=== PATIENT | male | born 1965 | race Caucasian/White ===

== ENCOUNTER 2018-10-31 09:19 | Inpatient (IN) | payer OTHER ==
[~2018-10-31] VITALS: Ht 177.8 cm; Wt 84.6 kg
[2018-10-31] MEDS ORDERED: ONDANSETRON 4 MG INJ IV STA (09:31)
[2018-10-31] MEDS ORDERED: morphine 4 MG/ML VIAL IV STA ×2 (09:31→19:53)
[2018-10-31] MEDS ORDERED: NITROGLYCERIN 2% 1 GM OINT PKT TD STA (09:31)
--- NOTE | 2018-10-31 09:36 | ERD ---
ER Documentation Chief Complaint Chief Complaint chest pain with mild sob nausea and vomiting., no diaphoresis, HPI This is a 53-year-old male with a history of prior cardiac stent who is here for chest pain. The patient is complaining of an hour prior to arrival with substernal chest pressure without radiation with nausea vomiting x1 nonbloody, dizzy and short of breath. No diaphoresis. The patient took his home nitroglycerin which is about 2 years old but did not help. His chest pressure is like his prior myocardial infarction a few years ago. Patient is also complaining in that he has back pain just below his shoulder blades ROS All systems reviewed and are negative except as per history of present illness. Medications Home Meds Reported Medications Simvastatin (Simvastatin) Unknown Strength Tablet, PO DAILY, #30 TAB PT DOSENT KNOW DOSAGE 10/31/18 Clonidine Hcl* (Clonidine Hcl*) Unknown Strength Tab, PO DAILY PRN for ELEVATED BLOOD PRESSURE, TAB PT DOSENT KNOW DOSAGE 10/31/18 Lamotrigine* (Lamictal*) 200 Mg Tablet, 200 MG PO DAILY, TAB 10/31/18 Lurasidone Hcl (LATUDA) 60 Mg Tablet, 60 MG PO BID, #30 TAB 10/31/18 Trazodone Hcl* (Trazodone Hcl*) 150 Mg Tablet, 150 MG PO QHS, #30 TAB 10/31/18 Alprazolam* (Xanax*) 2 Mg Tablet, 2 MG PO BID PRN for ANXIETY, TAB 10/31/18 Allergies Allergies: Coded Allergies: No Known Allergy (Unverified , 10/31/18) FmHx Family History: No coronary disease Physical Exam Vitals Vital Signs Date Temp Pulse Resp B/P (MAP) Pulse Ox O2 O2 Flow FiO2 Time Delivery Rate 10/31/18 82 18 152/106 100 Nasal 2.0 10:44 (121) Cannula 10/31/18 95 18 149/116 100 Nasal 2.0 10:23 (127) Cannula 10/31/18 Nasal 2 10:02 Cannula 10/31/18 98.4 88 18 174/115 98 09:26 (134) Physical Exam Const: Well-developed, well-nourished Head: Atraumatic, normocephalic Eyes: Normal Conjunctiva, PERRLA, EOMI, normal sclera, no nystagmus ENT: Normal External Ears, Nose and Mouth, moist mucus membranes. Neck: Full range of motion. No meningismus, no lymphadenopathy. Resp: Clear to auscultation bilaterally, no wheezing, rhonchi, rales Cardio: Regular rate and rhythm, no murmurs, S1 S2 present Abd: Soft, non tender x 4, non distended. Normal bowel sounds, no guarding or rebound, no pulsitile abdominal masses or bruits Skin: No petechiae or rashes, no ecchymosis , no maculopapular rash Back: No midline or flank tenderness Ext: No cyanosis, or edema, FROM x 4, normal inspection, neurovascularly intact x 4 Neur: Awake and alert, STR 5/5 x 4, sensation intact x 4, no focal findings, cerebellum intact Psych: Normal Mood and Affect Result Diagram: 10/31/1893410/31/1835 Results 24 hrs Laboratory Tests Test 10/31/18 09:35 White Blood Count 11.4 10^3/ul Red Blood Count 5.29 10^6/ul Hemoglobin 16.4 g/dl Hematocrit 47.6 % Mean Corpuscular Volume 90.0 fl Mean Corpuscular Hemoglobin 31.0 pg Mean Corpuscular Hemoglobin Concent 34.5 g/dl Red Cell Distribution Width 12.8 % Platelet Count 319 10^3/UL Mean Platelet Volume 8.8 fl Immature Granulocytes % 0.400 % Neutrophils % 80.7 % Lymphocytes % 13.5 % Monocytes % 5.1 % Eosinophils % 0.1 % Basophils % 0.2 % Nucleated Red Blood Cells % 0.0 /100WBC Immature Granulocytes # 0.050 10^3/ul Neutrophils # 9.2 10^3/ul Lymphocytes # 1.5 10^3/ul Monocytes # 0.6 10^3/ul Eosinophils # 0.0 10^3/ul Basophils # 0.0 10^3/ul Nucleated Red Blood Cells # 0.0 10^3/ul Prothrombin Time 12.7 Sec Prothrombin Time Ratio 1.0 INR International Normalized Ratio 0.94 Activated Partial Thromboplast Time 25.8 Sec Sodium Level 140 mmol/L Potassium Level 3.9 mmol/L Chloride Level 105 mmol/L Carbon Dioxide Level 21 mmol/L Anion Gap 14 Blood Urea Nitrogen 12 mg/dl Creatinine 1.07 mg/dl Est Glomerular Filtrat Rate mL/min > 60 mL/min Glucose Level 130 mg/dl Calcium Level 10.0 mg/dl Troponin I < 0.012 ng/ml Current Medications Medications Dose Sig/Meera Start Time Status Last (Trade) Ordered Route PRN Stop Time Admin Dose Reason Admin 1 inch ONCE STAT 10/31/18 DC 10/31/18 Nitroglycerin TD 09: 09:47 10/31/18 09:33 (Nitroglyceri n 2% Oint) Morphine 4 mg ONCE STAT 10/31/18 DC 10/31/18 Sulfate IV : 09:47 (morphine) 10/31/18 09:34 Ondansetron 4 mg ONCE STAT 10/31/18 DC 10/31/18 HCl (Zofran IV 09: 09:46 Inj) 10/31/18 09:34 Nicardipine 30 mg ONCE ONCE 10/31/18 DC 10/31/18 HCl PO 10:00 09:47 (Cardene) 10/31/18 10:01 Iohexol 100 ml @ ud STK-MED 10/31/18 DC ONCE .ROUTE 10:10/31/18 10:26 Sodium 100 ml @ ud STK-MED 10/31/18 DC Chloride ONCE .ROUTE 10:10/31/18 10:26 IV Flush 10 ml STK-MED 10/31/18 DC (NS 10 ml) ONCE .ROUTE 10:25 10/31/18 10:26 Procedures/MDM EKG: Rate/Rhythm: Normal Sinus Rhythm,NL intervals QRS, ST, QT: NORMAL NH, QRS, QT] Impression: NORMAL EKG MR #: [id number] DOS: 10/31/18930 Ordering MD: MARIELA INFANTE DO Location: E/R Room/Bed: PROCEDURE: CTA Chest CLINICAL INDICATION: Chest pain TECHNIQUE: CTA of the chest with 100 cc Omnipaque 350 IV contrast. Coronal, sagittal and 3-D volume rendered reformatted images were obtained. One or more of the following dose reduction techniques were used: automated exposure control, adjustment of the mA and/or kV according to patient size, use of iterative reconstruction technique. DICOM images are available. CTDI 18.7 mGy, DLP 752 mGy-cm. COMPARISON: No prior studies are available for comparison. FINDINGS: Lungs: Mild right lung base scarring/atelectasis. No acute infiltrate, pleural effusion or pneumothorax. No pulmonary nodule or mass. Cardiovascular: No pulmonary emboli. Normal heart size. Implanted loop recorder is present within anterior left chest wall subcutaneous fat. Coronary arterial and aortic atherosclerotic calcifications. No thoracic aortic aneurysm or dissection. Lymph nodes: No lymphadenopathy. Mediastinum: No mediastinal mass. Upper abdomen: Unremarkable. Musculoskeletal: Degenerative enthesopathy of the spine. IMPRESSION: 1. No thoracic aortic aneurysm or dissection. No pulmonary embolism. 2. Coronary arterial and aortic atherosclerotic calcifications. 3. No evidence of mass, lymphadenopathy, or acute infiltrate. RPTAT: QQ .Ori Leslie MD, MD Date Time Electronically viewed and signed by .Ori Leslie MD, on 10/31/2018 10:53 .R/ CC: MARIELA INFANTE DO [id number] The patient will be admitted for chest pain workup. No evidence of aortic dissection. Is still complaining that he feels dizzy blood pressure still a bit elevated with a diastolic of 109. Will repeat Cardene and he feels like the room is spinning a bit I will give him some Antivert. No headache. Cardiac Admit MDM: Patient's symptoms are concerning for cardiac cause will require inpatient workup and continuous monitoring. Further w/u for ischemia, arrhythmia, PE or dissection will be deferred to the inpatient team. Departure Diagnosis: Primary Impression: Chest pain Chest pain type: unspecified Qualified Codes: R07.9 - Chest pain, unspecified Condition: Stable MARIELA INFANTE DO Oct 31, 2018 09:36
[2018-10-31] MEDS ORDERED: NICARDipine HCL 30 MG CAPSULE PO ONE ×2 (10:00→11:00)
[2018-10-31] MEDS ORDERED: ALPR2TAB PO (10:21)
[2018-10-31] MEDS ORDERED: LURA60TA PO (10:22)
[2018-10-31] MEDS ORDERED: LAMO200T3 PO (10:22)
[2018-10-31] MEDS ORDERED: TRAZ150T65 PO (10:22)
[2018-10-31] MEDS ORDERED: CLON-379 PO (10:24)
[2018-10-31] MEDS ORDERED: ZOC10 PO (10:25)
[2018-10-31] MEDS ORDERED: SOD CHLORIDE 0.9% 100 ML ONE ×2 (10:25→15:31)
[2018-10-31] MEDS ORDERED: IOHEXOL 100 ML ONE (10:25)
[2018-10-31] MEDS ORDERED: MECLIZINE 12.5 MG TAB PO ONE (11:00)
[2018-10-31] MEDS ORDERED: ONDANSETRON 4 MG INJ IV PRN ×2 (11:30→15:00)
[2018-10-31] MEDS ORDERED: ACETAMINOPHEN 325 MG TAB PO PRN ×2 (11:30→15:00)
[2018-10-31] MEDS ORDERED: LORAZEPAM 2 MG INJ IV ONE (12:30)
[2018-10-31] MEDS ORDERED: SOD CHLORIDE 0.9% 500 ML IV ONE (13:30)
[2018-10-31] MEDS ORDERED: hydrALAzine 20 MG INJ IV ONE (13:30)
[2018-10-31] MEDS: SOD CHLORIDE 0.9% 1,000 ML IV SCH (14:49)
[2018-10-31] MEDS ORDERED: NACL 0.9% 3 ML SYG IV SCH (15:00)
--- NOTE | 2018-10-31 15:30 | HP ---
Date/Time of Note Date/Time of Note DATE: 10/31/18 TIME: 15:06 Assessment/Plan VTE Prophylaxis SCD applied (from Nsg): Yes Pharmacological prophylaxis: NA/contraindicated Pharm contraindication: low risk/ambulating Lines/Catheters IV Catheter Type (from Nrsg): Saline Lock Assessment/Plan Assessment/Plan 53 yo man history of CAD (SD with PCI in 2016), hypertension, and anxiety presents with multiple complaints including vomiting with PO intolerance, chest pain and vertigo #Chest pain - Reports symptoms are similar to SD in 2016. - No relief after aspirin and NG - Low suspicion for ACS though with reassuring EKG, negative initial troponin. - Will continue to trend trops. #CAD - Continue home aspirin, statin. #Vertigo No other focal neuro findings, no tinnitus Differential: - Severe dehydration from GI losses: will aggressively replace fluids - Cerebellar stroke: Will get MRI - Viral labyrinthitis or vestibulitis: If MRI negative and symptoms persist, will consider prednisone taper. #Vomiting+diarrhea - Likely due to acute viral or toxic gastroenteritis - Admit for PO intolerance. - IV fluids, zofran prn. - Will try clear liquid diet. #Abdominal mass - I thought I felt a pulsatile abdominal mass. I'll order CT abdomen/pelvis for possible AAA. Also can r/o SBO this way. #Seizure disorder - Continue lamotrigine #HTN - Continue home clonidine DVT: SCDs GI: PPI Result Diagram: 10/31/18 0935 10/31/18 0935 HPI/ROS Admit Date/Time Admit Date/Time October 31, 2018 Hx of Present Illness Mr. Ochoa is a 53 yo man with history of CAD (SD with PCI in 2016), hypertension, and anxiety who presents with vertigo, vomiting, diarrhea, and chest pain. He was in his usual state of health until Thursday night, three days prior to admission. That night he developed nausea and nonbloody vomiting which has persisted since admission; for the past few days he's had almost complete PO intolerance and has vomited up food, liquids, and medications. About two days ago developed runny diarrhea. Yesterday he developed vertigo, describes the room spinning around him. Present with standing and also at rest. Also had chills during this time. Of note he's also had rhinorrhea and cough productive of yellow sputum for about 1.5 weeks. He also reports weeks of lower urinary obstructive symptoms, including weak urinary stream and dribbling after stopping. Also reports some burning dysuria during this time. He had a heart attack in 2016, got PCI and stent placement. Reports being in an induced coma for 3 days. Also in 2016 had an implanted loop recorder placed at [facility] which is still in place. 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 This morning at 6:30 he rolled over in his sleep and woke up with severe vertigo. He took his blood pressure medications and immediately vomited them up. About 30 minutes after waking up he developed pressure-like chest pain "like my heart is in a box getting squeezed", radiating to his back. Called paramedics and arrived in the ED. The chest pain is still present when I evaluated him in the ED. In the ED he was afebrile, hypertensive to 164/115. EKG reviewed; no ST-T changes concerning for ischemia. Got PO and IV nicardipene. Still slightly hypertensive, got hydralazine IV and soon after heart rate increased to 140s- 150s, sinus tachy. Labs unremarkable, troponin negative x1. CT chest angiogram negative for PE or aortic aneurysm. ROS Denies fever, weight loss, night sweats, headache, vision changes, hearing loss, tinnitus, sore throat, dysphagia, dyspnea, heart palpitations, constipation, muscle aches. PMH/Family/Social Past Medical History Anxiety disorder Hypertension SD with PCI in 2016 Medications Current Medications Ondansetron HCl (Zofran Inj) 4 mg ER BRIDGE PRN IV NAUSEA/VOMITING; Start 10/31/18 at 11:30; Stop 11/01/18 at 11:29 Acetaminophen (Tylenol Tab) 650 mg ER BRIDGE PRN PO .MILD PAIN 1-3 OR TEMP; Start 10/31/18 at 11:30; Stop 11/01/18 at 11:29 Sodium Chloride 1,000 ml @ 100 mls/hr Q10H IV ; Start 10/31/18 at 14:49 IV Flush (NS 3 ml) 3 ml PER PROTOCOL IV ; Start 10/31/18 at 15:00 Ondansetron HCl (Zofran Inj) 4 mg Q6H PRN IV NAUSEA/VOMITING; Start 10/31/18 at 15:00 Acetaminophen (Tylenol Tab) 650 mg Q6H PRN PO .PAIN 1-3 OR TEMP; Start 10/31/18 at 15:00 Pantoprazole (Protonix Iv) 40 mg DAILY@06 IV ; Start 11/01/18 at 06:00; Status UNV Lamotrigine (Lamictal) 200 mg DAILY PO ; Start 11/01/18 at 09:00; Status UNV Trazodone HCl (Desyrel) 150 mg QHS PO ; Start 10/31/18 at 21:00; Status UNV Miscellaneous Information 60 mg BID PO ; Start 10/31/18 at 21:00; Status UNV Clonidine (Catapres) 0.1 mg BID PO ; Start 10/31/18 at 21:00; Status UNV Atorvastatin Calcium (Lipitor) 40 mg HS PO ; Start 10/31/18 at 21:00; Status UNV Aspirin (Aspirin) 81 mg DAILY PO ; Start 11/01/18 at 09:00; Status UNV Coded Allergies: No Known Allergy (Unverified , 10/31/18) Past Surgical History Cholecystectomy Cardiac loop recorder. Social History Alcohol Use: none Smoking Status: Former smoker (quit 3 months ago; smoked for 6 years. ) Drug Use: none Exam/Review of Systems Vital Signs Vitals Vital Signs Date Temp Pulse Resp B/P (MAP) Pulse Ox O2 O2 Flow FiO2 Time Delivery Rate 10/31/18 123 16 137/99 99 Nasal 2.0 13:36 (112) Cannula 10/31/18 98.4 09:26 Exam Exam Gen: Well developed man, anxious and uncomfortable appearing. Eyes: PERRL, no icterus. Nystagmus with lateral gaze. HEENT: Moist mucous membranes, clear oropharynx, no pharyngeal erythema. Neck: Supple, no lymphadenopathy, no JVD Card: Tachycardic, loud S1+S2. No murmurs appreciated. Pulm: Clear to auscultation bilaterally. Abd: Prominent pulse heard throughout. Feels pulsatile on deep palpation. No palpable masses. Nontender throughout. Soft, nondistended. Ext: No cyanosis/clubbing/edema, good peripheral pulses. Skin: warm, dry, well perfused. LIZZY SERNA MD Oct 31, 2018 15:18
[2018-10-31] MEDS ORDERED: IOHEXOL 300MG/ML 150 ML BTL ONE (15:31)
[2018-10-31] MEDS: LORAZEPAM 2 MG INJ IV PRN ×2 (16:44→22:58)
[2018-10-31] MEDS: IBUPROFEN 800 MG TAB PO PRN (17:36)
[2018-10-31] MEDS ORDERED: NON-FORMULARY/PATIENT OWN MED (Lurasidone Hcl (Latuda) 60 MG) PO SCH (21:00)
[2018-10-31] MEDS: FAMOTIDINE 20 MG INJ IV SCH (22:57)
[2018-10-31] MEDS: ATORVASTATIN 40 MG TAB PO SCH (22:57)
[2018-10-31] MEDS: traZODone 50 MG TAB PO SCH (22:57)
[2018-11-01] VITALS (13 sets, daily range): BP systolic 107–139; BP diastolic 74–93; PULSE 90–131; RESP 20; Ht 177.8 cm; Wt 84.6 kg
[2018-11-01] MEDS: SOD CHLORIDE 0.9% 1,000 ML IV SCH ×3 (01:09→23:40)
[2018-11-01] MEDS: morphine 2 MG INJ IV PRN ×3 (02:28→20:41)
[2018-11-01] MEDS: LORAZEPAM 2 MG INJ IV PRN ×3 (05:06→18:04)
[2018-11-01] MEDS: ASPIRIN 81 MG TAB PO SCH (08:31)
[2018-11-01] MEDS: LAMOTRIGINE 100 MG TAB PO SCH (08:32)
[2018-11-01] MEDS: FAMOTIDINE 20 MG INJ IV SCH ×2 (08:32→20:39)
[2018-11-01] MEDS: LURASIDONE IS XX SCH ×2 (13:22→21:30)
[2018-11-01] MEDS: traZODone 50 MG TAB PO SCH (20:40)
[2018-11-01] MEDS: ATORVASTATIN 40 MG TAB PO SCH (20:40)
[2018-11-02] VITALS (13 sets, daily range): BP systolic 111–152; BP diastolic 52–96; PULSE 74–143; RESP 19–20
[2018-11-02] MEDS: LURASIDONE IS XX SCH ×2 (04:30→14:28)
[2018-11-02] MEDS: LORAZEPAM 2 MG INJ IV PRN ×2 (06:36→18:29)
[2018-11-02] MEDS: FAMOTIDINE 20 MG INJ IV SCH (07:44)
[2018-11-02] MEDS: ASPIRIN 81 MG TAB PO SCH (07:44)
[2018-11-02] MEDS: LAMOTRIGINE 100 MG TAB PO SCH (07:44)
--- NOTE | 2018-11-02 16:29 | PN ---
Date/Time of Note Date/Time of Note DATE: 11/02/18 TIME: 16:26 Assessment/Plan VTE Prophylaxis Risk score (from Nsg)>0 risk: 1 SCD applied (from Nsg): Yes SCD contraindicated: low risk/ambulating Pharmacological prophylaxis: LMWH Lines/Catheters IV Catheter Type (from Nrsg): Peripheral IV Urinary Cath still in place: No Assessment/Plan Hospital Course Late entry for 11/01 Assessment and plan 1. Atypical chest pain ruled out ACS by enzymes EKG symptoms. Stable observe 2. Chronic coronary diseasePCI 2016 old ID 3. Chronic hypertension 4. Chronic generalized anxiet y 5. Past tobacco quit a few months ago 6. COPD? 1. Seizure disorder Reactive: No nausea vomiting diaphoresis. No further chest pain requiring nitro etc. Objective: Vital signs stable sinus rhythm Physical exam No pallor JVD Regular Clear no tachypnea no rash 9 benign No edema Result Diagram: 11/02/18 0456 11/02/18 0456 Results 24hrs Laboratory Tests Test 11/02/18 04:56 White Blood Count 7.7 Red Blood Count 4.43 L Hemoglobin 13.9 L Hematocrit 41.4 L Mean Corpuscular Volume 93.5 Mean Corpuscular Hemoglobin 31.4 Mean Corpuscular Hemoglobin Concent 33.6 Red Cell Distribution Width 13.0 Platelet Count 257 Mean Platelet Volume 9.0 Immature Granulocytes % 0.300 Neutrophils % 64.1 Lymphocytes % 22.2 Monocytes % 8.6 Eosinophils % 3.9 Basophils % 0.9 Nucleated Red Blood Cells % 0.0 Immature Granulocytes # 0.020 Neutrophils # 4.9 Lymphocytes # 1.7 Monocytes # 0.7 Eosinophils # 0.3 Basophils # 0.1 Nucleated Red Blood Cells # 0.0 Prothrombin Time 13.7 Prothrombin Time Ratio 1.1 INR International Normalized Ratio 1.04 Sodium Level 140 Potassium Level 4.3 Chloride Level 111 H Carbon Dioxide Level 21 Anion Gap 8 Blood Urea Nitrogen 12 Creatinine 1.22 Est Glomerular Filtrat Rate mL/min > 60 Glucose Level 89 Lactic Acid Level 1.1 Calcium Level 9.2 Phosphorus Level 3.3 Magnesium Level 1.9 Total Bilirubin 0.6 Direct Bilirubin 0.00 Indirect Bilirubin 0.6 Aspartate Amino Transf (AST/SGOT) 18 Alanine Aminotransferase (ALT/SGPT) 24 Alkaline Phosphatase 42 Total Protein 6.4 Albumin 3.7 Globulin 2.70 Albumin/Globulin Ratio 1.37 Lipase 53 Exam/Review of Systems Exam Vitals Vital Signs Date Temp Pulse Resp B/P (MAP) Pulse Ox O2 O2 Flow FiO2 Time Delivery Rate 11/02/18 98.3 99 20 144/94 97 15:17 (111) 11/01/18 Room Air 01:30 10/31/18 2.0 17:16 Intake and Output 11/01/18 11/01/18 11/02/18 1414:59 22:59 06:59 IntakeIntake Total 850 ml 710 ml OutputOutput Total 802 ml BalanceBalance 850 ml -92 ml Results Results 24hrs Laboratory Tests Test 11/02/18 04:56 White Blood Count 7.7 Red Blood Count 4.43 L Hemoglobin 13.9 L Hematocrit 41.4 L Mean Corpuscular Volume 93.5 Mean Corpuscular Hemoglobin 31.4 Mean Corpuscular Hemoglobin Concent 33.6 Red Cell Distribution Width 13.0 Platelet Count 257 Mean Platelet Volume 9.0 Immature Granulocytes % 0.300 Neutrophils % 64.1 Lymphocytes % 22.2 Monocytes % 8.6 Eosinophils % 3.9 Basophils % 0.9 Nucleated Red Blood Cells % 0.0 Immature Granulocytes # 0.020 Neutrophils # 4.9 Lymphocytes # 1.7 Monocytes # 0.7 Eosinophils # 0.3 Basophils # 0.1 Nucleated Red Blood Cells # 0.0 Prothrombin Time 13.7 Prothrombin Time Ratio 1.1 INR International Normalized Ratio 1.04 Sodium Level 140 Potassium Level 4.3 Chloride Level 111 H Carbon Dioxide Level 21 Anion Gap 8 Blood Urea Nitrogen 12 Creatinine 1.22 Est Glomerular Filtrat Rate mL/min > 60 Glucose Level 89 Lactic Acid Level 1.1 Calcium Level 9.2 Phosphorus Level 3.3 Magnesium Level 1.9 Total Bilirubin 0.6 Direct Bilirubin 0.00 Indirect Bilirubin 0.6 Aspartate Amino Transf (AST/SGOT) 18 Alanine Aminotransferase (ALT/SGPT) 24 Alkaline Phosphatase 42 Total Protein 6.4 Albumin 3.7 Globulin 2.70 Albumin/Globulin Ratio 1.37 Lipase 53 Medications Medication Current Medications Sodium Chloride 1,000 ml @ 50 mls/hr Q20H IV Last administered on 11/01/18at 23:40; Admin Dose 50 MLS/HR; Start 10/31/18 at 14:49 IV Flush (NS 3 ml) 3 ml PER PROTOCOL IV ; Start 10/31/18 at 15:00 Ondansetron HCl (Zofran Inj) 4 mg Q6H PRN IV NAUSEA/VOMITING Last administered on 11/01/18 02:26; Admin Dose 4 MG; Start 10/31/18 at 15:00 Acetaminophen (Tylenol Tab) 650 mg Q6H PRN PO .PAIN 1-3 OR TEMP Last administered on 10/31/18 15:52; Admin Dose 650 MG; Start 10/31/18 at 15:00 Famotidine (Pepcid Iv) 20 mg BID IV Last administered on 11/02/18 07:44; Admin Dose 20 MG; Start 10/31/18 at 21:00 Lamotrigine (Lamictal) 200 mg DAILY PO Last administered on 11/02/18 07:44; Admin Dose 200 MG; Start 11/01/18 at 09:00 Trazodone HCl (Desyrel) 150 mg QHS PO Last administered on 11/01/18 20:40; Admin Dose 150 MG; Start 10/31/18 at 21:00 Miscellaneous Information 60 mg BID PO ; Start 10/31/18 at 21:00; Status UNV Clonidine (Catapres) 0.1 mg BID PO Last administered on 11/02/18 07:44; Admin Dose 0.1 MG; Start 10/31/18 at 21:00 Atorvastatin Calcium (Lipitor) 40 mg HS PO Last administered on 11/01/18 20:40; Admin Dose 40 MG; Start 10/31/18 at 21:00 Aspirin (Aspirin) 81 mg DAILY PO Last administered on 11/02/18 07:44; Admin Dose 81 MG; Start 11/01/18 at 09:00 Lorazepam (Ativan) 1 mg Q6H PRN IV agitation Last administered on 11/02/18 06:36; Admin Dose 1 MG; Start 10/31/18 at 16:30 Ibuprofen (Motrin) 800 mg Q6H PRN PO MILD PAIN LEVEL 1-3 Last administered on 10/31/18 17:36; Admin Dose 800 MG; Start 10/31/18 at 17:30 Morphine Sulfate (morphine) 2 mg Q4 PRN IV PAIN LEVEL 6-10 Last administered on 11/01/18 20:41; Admin Dose 2 MG; Start 4/21/19 at 20:00 Miscellaneous Information (*Order Clarification Bulletin) MEDICATION REQUIRES CLARIFICATION: Q8H XX Last administered on 11/02/18at 14:28; Admin Dose 1 EA; Start 11/01/18 at 13:30 PARTHA ADLER MD Nov 02, 2018 16:29
--- NOTE | 2018-11-02 17:17 | PN ---
Date/Time of Note Date/Time of Note DATE: 11/02/18 TIME: 17:16 Assessment/Plan VTE Prophylaxis Risk score (from Nsg)>0 risk: 1 SCD applied (from Nsg): Yes SCD contraindicated: low risk/ambulating Pharmacological prophylaxis: LMWH Lines/Catheters IV Catheter Type (from Nrsg): Peripheral IV Urinary Cath still in place: No Assessment/Plan Hospital Course Assessment and plan 1. Atypical chest pain ruled out ACS via enzymes/ EKG. Stable observe 2. Chronic coronary diseasePCI 2015; old [place] continue medical management 3. Chronic hypertension 4. Chronic generalized anxiety 5. Past tobacco quit a few months ago 6. COPD? 7. Seizure disorder S: 11/01 no nausea vomiting diaphoresis. No further chest pain requiring nitro etc. 11/02 tolerating diet no further chest pain. Feels more discomfort with heavy meals O: Vital signs stable sinus rhythm PE No pallor JVD Regular Clear no tachypnea benign No edema Result Diagram: 11/02/18 0456 11/02/18 0456 Results 24hrs Laboratory Tests Test 11/02/18 04:56 White Blood Count 7.7 Red Blood Count 4.43 L Hemoglobin 13.9 L Hematocrit 41.4 L Mean Corpuscular Volume 93.5 Mean Corpuscular Hemoglobin 31.4 Mean Corpuscular Hemoglobin Concent 33.6 Red Cell Distribution Width 13.0 Platelet Count 257 Mean Platelet Volume 9.0 Immature Granulocytes % 0.300 Neutrophils % 64.1 Lymphocytes % 22.2 Monocytes % 8.6 Eosinophils % 3.9 Basophils % 0.9 Nucleated Red Blood Cells % 0.0 Immature Granulocytes # 0.020 Neutrophils # 4.9 Lymphocytes # 1.7 Monocytes # 0.7 Eosinophils # 0.3 Basophils # 0.1 Nucleated Red Blood Cells # 0.0 Prothrombin Time 13.7 Prothrombin Time Ratio 1.1 INR International Normalized Ratio 1.04 Sodium Level 140 Potassium Level 4.3 Chloride Level 111 H Carbon Dioxide Level 21 Anion Gap 8 Blood Urea Nitrogen 12 Creatinine 1.22 Est Glomerular Filtrat Rate mL/min > 60 Glucose Level 89 Lactic Acid Level 1.1 Calcium Level 9.2 Phosphorus Level 3.3 Magnesium Level 1.9 Total Bilirubin 0.6 Direct Bilirubin 0.00 Indirect Bilirubin 0.6 Aspartate Amino Transf (AST/SGOT) 18 Alanine Aminotransferase (ALT/SGPT) 24 Alkaline Phosphatase 42 Total Protein 6.4 Albumin 3.7 Globulin 2.70 Albumin/Globulin Ratio 1.37 Lipase 53 Exam/Review of Systems Exam Vitals Vital Signs Date Temp Pulse Resp B/P (MAP) Pulse Ox O2 O2 Flow FiO2 Time Delivery Rate 11/02/18 98.3 99 20 144/94 97 15:17 (111) 11/01/18 Room Air 01:30 10/31/18 2.0 17:16 Intake and Output 11/01/18 11/01/18 11/02/18 1414:59 22:59 06:59 IntakeIntake Total 850 ml 710 ml OutputOutput Total 802 ml BalanceBalance 850 ml -92 ml Results Results 24hrs Laboratory Tests Test 11/02/18 04:56 White Blood Count 7.7 Red Blood Count 4.43 L Hemoglobin 13.9 L Hematocrit 41.4 L Mean Corpuscular Volume 93.5 Mean Corpuscular Hemoglobin 31.4 Mean Corpuscular Hemoglobin Concent 33.6 Red Cell Distribution Width 13.0 Platelet Count 257 Mean Platelet Volume 9.0 Immature Granulocytes % 0.300 Neutrophils % 64.1 Lymphocytes % 22.2 Monocytes % 8.6 Eosinophils % 3.9 Basophils % 0.9 Nucleated Red Blood Cells % 0.0 Immature Granulocytes # 0.020 Neutrophils # 4.9 Lymphocytes # 1.7 Monocytes # 0.7 Eosinophils # 0.3 Basophils # 0.1 Nucleated Red Blood Cells # 0.0 Prothrombin Time 13.7 Prothrombin Time Ratio 1.1 INR International Normalized Ratio 1.04 Sodium Level 140 Potassium Level 4.3 Chloride Level 111 H Carbon Dioxide Level 21 Anion Gap 8 Blood Urea Nitrogen 12 Creatinine 1.22 Est Glomerular Filtrat Rate mL/min > 60 Glucose Level 89 Lactic Acid Level 1.1 Calcium Level 9.2 Phosphorus Level 3.3 Magnesium Level 1.9 Total Bilirubin 0.6 Direct Bilirubin 0.00 Indirect Bilirubin 0.6 Aspartate Amino Transf (AST/SGOT) 18 Alanine Aminotransferase (ALT/SGPT) 24 Alkaline Phosphatase 42 Total Protein 6.4 Albumin 3.7 Globulin 2.70 Albumin/Globulin Ratio 1.37 Lipase 53 Medications Medication Current Medications Sodium Chloride 1,000 ml @ 50 mls/hr Q20H IV Last administered on 11/01/18at 23:40; Admin Dose 50 MLS/HR; Start 10/31/18 at 14:49 IV Flush (NS 3 ml) 3 ml PER PROTOCOL IV ; Start 10/31/18 at 15:00 Ondansetron HCl (Zofran Inj) 4 mg Q6H PRN IV NAUSEA/VOMITING Last administered on 11/01/18 02:26; Admin Dose 4 MG; Start 10/31/18 at 15:00 Acetaminophen (Tylenol Tab) 650 mg Q6H PRN PO .PAIN 1-3 OR TEMP Last administered on 10/31/18 15:52; Admin Dose 650 MG; Start 10/31/18 at 15:00 Famotidine (Pepcid Iv) 20 mg BID IV Last administered on 11/02/18 07:44; Admin Dose 20 MG; Start 10/31/18 at 21:00 Lamotrigine (Lamictal) 200 mg DAILY PO Last administered on 11/02/18 07:44; Admin Dose 200 MG; Start 11/01/18 at 09:00 Trazodone HCl (Desyrel) 150 mg QHS PO Last administered on 11/01/18 20:40; Admin Dose 150 MG; Start 10/31/18 at 21:00 Miscellaneous Information 60 mg BID PO ; Start 10/31/18 at 21:00; Status UNV Clonidine (Catapres) 0.1 mg BID PO Last administered on 11/02/18 07:44; Admin Dose 0.1 MG; Start 10/31/18 at 21:00 Atorvastatin Calcium (Lipitor) 40 mg HS PO Last administered on 11/01/18 20:40; Admin Dose 40 MG; Start 10/31/18 at 21:00 Aspirin (Aspirin) 81 mg DAILY PO Last administered on 11/02/18 07:44; Admin Dose 81 MG; Start 11/01/18 at 09:00 Lorazepam (Ativan) 1 mg Q6H PRN IV agitation Last administered on 11/02/18 06:36; Admin Dose 1 MG; Start 10/31/18 at 16:30 Ibuprofen (Motrin) 800 mg Q6H PRN PO MILD PAIN LEVEL 1-3 Last administered on 10/31/18 17:36; Admin Dose 800 MG; Start 10/31/18 at 17:30 Morphine Sulfate (morphine) 2 mg Q4 PRN IV PAIN LEVEL 6-10 Last administered on 11/01/18 20:41; Admin Dose 2 MG; Start 10/31/18 at 20:00 Miscellaneous Information (*Order Clarification Bulletin) MEDICATION REQUIRES CLARIFICATION: Q8H XX Last administered on 11/02/18at 14:28; Admin Dose 1 EA; Start 11/01/18 at 13:30 PARTHA ALDER MD Nov 02, 2018 17:17
[2018-11-02] MEDS: SOD CHLORIDE 0.9% 1,000 ML IV SCH (18:29)
[2018-11-02] MEDS: morphine 2 MG INJ IV PRN (20:40)
[2018-11-02] MEDS: FAMOTIDINE 20 MG TAB PO SCH (20:41)
[2018-11-02] MEDS: traZODone 50 MG TAB PO SCH (20:41)
[2018-11-02] MEDS: ATORVASTATIN 40 MG TAB PO SCH (20:41)
[2018-11-03] VITALS (10 sets, daily range): BP systolic 117–137; BP diastolic 88–102; PULSE 67–90; RESP 19–20
[2018-11-03] MEDS: FAMOTIDINE 20 MG TAB PO SCH (08:31)
[2018-11-03] MEDS: ASPIRIN 81 MG TAB PO SCH (08:31)
[2018-11-03] MEDS: LAMOTRIGINE 100 MG TAB PO SCH (08:31)
[2018-11-03] MEDS: LORAZEPAM 2 MG INJ IV PRN (08:32)
[2018-11-03] MEDS: IBUPROFEN 800 MG TAB PO PRN (12:11)
[2018-11-03] MEDS: morphine 2 MG INJ IV PRN (12:40)
--- NOTE | 2018-11-03 13:40 | DS ---
Date/Time of Note Date/Time of Note DATE: 11/03/18 TIME: 13:35 Discharge Summary Admission/Discharge Info Admit Date/Time Nov 02, 2018 at 19:20 Discharge Date/Time Patient Condition: Stable Consults Social service Case management Procedures MRI BRAIN IMPRESSION: 1. No evidence of acute intracranial pathology. 2. Very mild microvascular ischemic disease in the periventricular and deep white matter. 3. The brain is otherwise normal in appearance. CT A/P IMPRESSION: 1. Colonic diverticulosis without diverticulitis. 2. Calcific atherosclerosis of the aorta. 3. Mild fat-containing bilateral inguinal hernias. 4. Otherwise unremarkable contrast enhanced CT abdomen and pelvis without acute pathology identified. There is no evidence of abdominal aortic aneurysm or bowel obstruction. angiogram chest IMPRESSION: 1. No thoracic aortic aneurysm or dissection. No pulmonary embolism. 2. Coronary arterial and aortic atherosclerotic calcifications. 3. No evidence of mass, lymphadenopathy, or acute infiltrate. Hx of Present Illness 53-year-old gentleman admitted with chest pain. Hospital Course Hospitalist coverage/hospital course/ assessment and plan 1. Atypical chest pain ruled out ACS via enzymes/ EKG. Stable discharge home. Differential: gallbladder or GI issues. Observe- f/p as outpt. i Asked him to adjust his diet. 2. Chronic coronary diseasePCI 2016; old [place] continue medical management 3. Chronic hypertension 4. Chronic generalized anxiety 5. Past tobacco quit a few months ago 6. COPD? 7. Seizure disorder 8. Failure to thrive. Appreciate social service assistance. 9. Dyslipidemia? Adjust diet may require statin S: 11/01 no nausea vomiting diaphoresis. No further chest pain requiring nitro etc. 11/02 tolerating diet no further chest pain. Feels more discomfort with heavy meals O: Vital signs stable sinus rhythm PE No pallor JVD Regular Clear no tachypnea benign No edema Labs LFTs normal. total cholesterol 200 LDL 150 HDL 28 Triglycerides 130, and this is a nonfasting sample. Recommend repeat as outpatient as indicated. Home Meds Reported Medications Simvastatin (Simvastatin) Unknown Strength Tablet, PO DAILY, #30 TAB PT DOSENT KNOW DOSAGE 10/31/18 Clonidine Hcl* (Clonidine Hcl*) Unknown Strength Tab, PO DAILY PRN for ELEVATED BLOOD PRESSURE, TAB PT DOSENT KNOW DOSAGE 10/31/18 Lamotrigine* (Lamictal*) 200 Mg Tablet, 200 MG PO DAILY, TAB 10/31/18 Lurasidone Hcl (LATUDA) 60 Mg Tablet, 60 MG PO BID, #30 TAB 10/31/18 Trazodone Hcl* (Trazodone Hcl*) 150 Mg Tablet, 150 MG PO QHS, #30 TAB 10/31/18 Alprazolam* (Xanax*) 2 Mg Tablet, 2 MG PO BID PRN for ANXIETY, TAB 10/31/18 Primary Care Provider Not On Staff Doctor Time spent on discharge: > 30 minutes PARTHA ADLER MD Nov 03, 2018 13:40
--- NOTE | 2018-11-03 13:44 | PDOCDIS ---
Discharge Instructions CONDITION [id number] Patient Condition: [id number] Stable HOME CARE INSTRUCTIONS: [id number] Diet Instructions: [id number] Low Fat /Cholesterol [id number] Your diet recommendation is: [id number] foods ACTIVITY: [id number] Activity Restrictions: [id number] Slowly Increase Activity Do not Drive FOLLOW UP/APPOINTMENTS Follow-up Plan Appointment primary 1 week PARTHA ADLER MD Nov 03, 2018 13:44
[2018-11-03] MEDS ORDERED: FAMO20TA18 PO (13:51)
[2018-11-03] MEDS ORDERED: TOPI25CA PO (13:51)
[2018-11-03] MEDS ORDERED: ACET325T33 PO (13:51)
[2018-11-03] MEDS ORDERED: LAMO200T3 PO (13:51)
[2018-11-03] MEDS ORDERED: ASPI-817 PO (13:51)
[2018-11-03] MEDS ORDERED: CLON0.1T14 PO (13:51)
[2018-11-03] MEDS ORDERED: SIMV40TA2 PO (13:52)
== END 2018-11-03 18:07 | disposition home or self-care (01) | DRG 313 ==
LOC: E/R 09:19 → 6WM 11:13 → OBSVTOIN 11-02 19:20
PROVIDERS: ADMIT Internal Medicine; ATTEND Internal Medicine
DX: R07.89 Other chest pain (principal); I25.10 Atherosclerotic heart disease of native coronary artery without angina pectoris; I25.2 Old myocardial infarction; R42 Dizziness and giddiness; R11.10 Vomiting, unspecified; R19.7 Diarrhea, unspecified; R19.00 Intra-abdominal and pelvic swelling, mass and lump, unspecified site; G40.909 Epilepsy, unspecified, not intractable, without status epilepticus; I10 Essential (primary) hypertension; Z95.5 Presence of coronary angioplasty implant and graft; F41.1 Generalized anxiety disorder; Z87.891 Personal history of nicotine dependence
CPT/HCPCS: 36415; 70553; 71275; 74177; 80048; 80053; 80061; 81003; 83036; 83605; 83690; 83735; 84100; 84443; 84484; 85025; 85610; 85730; 87086; 93005; 96374; 96375; G0378; J0360; J2060; J2270; J2405; J7030; J7040; Q9967